=== PATIENT | female | born 1990 | race Caucasian/White ===

== ENCOUNTER → 2018-05-15 11:46 | Outpatient (CLI) | payer MEDICAID, SELFPAY ==
[2018-05-15 13:48] LABS: Estradiol 280.4 pg/mL; T4 Free Direct 0.98 ng/dL (0.76-1.46)
[2018-05-15 13:49] LABS: Progesterone Level 1.08 ng/mL (See Comment)
[2018-05-15 13:53] LABS: Hemoglobin A1c 4.9 % (4.2-6.3)
[2018-05-17 08:44] LABS: HPV Reflexed? NOT INDICATED
[2018-05-17 09:19] LABS: Sex Hormone-binding Globulin 135.3 nmol/L (24.6-122.0)
== END ==
PROVIDERS: Visit Provider Obstetrics & Gynecology
DX: L70.9 Acne, unspecified (principal); Z12.4 Encounter for screening for malignant neoplasm of cervix
CPT/HCPCS: 36415; 82670; 83036; 84144; 84270; 84403; 84439; 84443; 84481; 88175; G0145

== ENCOUNTER → 2019-07-22 17:21 | Outpatient (CLI) | payer OTHER, SELFPAY ==
[2019-07-22 20:07] LABS: Chlamydia Trachomatis by PCR Negative (Negative); Neisserai gonorrhoeae by PCR Negative (Negative); Probe Check PASS; Sample Adequacy Control PASS; Specimen Processing Control PASS
== END ==
PROVIDERS: Referring Provider Obstetrics & Gynecology; Visit Provider Obstetrics & Gynecology
DX: Z11.3 Encounter for screening for infections with a predominantly sexual mode of transmission (principal)
CPT/HCPCS: 87491; 87591

== ENCOUNTER → 2021-09-20 | Outpatient (CLI) | payer BC, SELFPAY ==
[2021-09-26 22:06] LABS: HPV Genotype 16, Aptima Negative (Negative)
[2021-09-26 23:01] LABS: HPV APTIMA, High Risk Positive (Negative); HPV Genotype 18,45 Aptima Negative (Negative)
== END | disposition home or self-care (01) ==
PROVIDERS: Visit Provider Obstetrics & Gynecology
DX: Z12.4 Encounter for screening for malignant neoplasm of cervix (principal)
CPT/HCPCS: 87624; 88175; G0145